=== PATIENT | female | born 1975 | race Caucasian/White ===

== ENCOUNTER 2020-08-26 16:58 | Emergency (ER) | payer MEDICAID ==
[~2020-08-26] VITALS: Ht 170.2 cm; Wt 117.3 kg
[2020-08-26 17:19] VITALS: BP 152/89
[2020-08-26] MEDS ORDERED: ketorolac tromethamine 15mg/ml inj. IM ONE (18:15)
[2020-08-26] MEDS ORDERED: IBUP-1984 PO (18:16)
== END 2020-08-26 18:45 | disposition home or self-care (01) ==
LOC: ER 17:00
DX: M54.5 Low back pain (principal); G89.29 Other chronic pain; F17.200 Nicotine dependence, unspecified, uncomplicated; Z72.89 Other problems related to lifestyle; Z88.5 Allergy status to narcotic agent; Z88.8 Allergy status to other drugs, medicaments and biological substances; Z79.899 Other long term (current) drug therapy
CPT/HCPCS: 96372; 99283; J1885

== ENCOUNTER 2020-10-15 12:30 | Emergency (ER) | payer MEDICAID ==
[2020-10-15 12:33] VITALS: BP 173/98
[2020-10-15] MEDS ORDERED: ACET-2119 PO (12:40)
[2020-10-15] MEDS ORDERED: CLIN300C54 PO (12:40)
== END 2020-10-15 12:48 | disposition home or self-care (01) ==
LOC: ER 12:30
DX: K04.7 Periapical abscess without sinus (principal); G89.29 Other chronic pain; Z86.19 Personal history of other infectious and parasitic diseases; Z72.89 Other problems related to lifestyle; Z88.6 Allergy status to analgesic agent; Z88.8 Allergy status to other drugs, medicaments and biological substances; Z79.899 Other long term (current) drug therapy
CPT/HCPCS: 99283

== ENCOUNTER 2021-02-12 09:44 | Emergency (ER) | payer MEDICAID ==
[~2021-02-12] VITALS: Ht 170.2 cm; Wt 123.0 kg
[2021-02-12 09:49] VITALS: BP 160/84
[2021-02-12] MEDS ORDERED: ketorolac trometh inj. 60 MG/2 ML VIAL IM ONE (10:45)
[2021-02-12] MEDS ORDERED: orphenadrine citrate 60mg/2ml inj. IM ONE (10:45)
== END 2021-02-12 11:59 | disposition home or self-care (01) ==
LOC: ER 09:44
DX: S39.012A Strain of muscle, fascia and tendon of lower back, initial encounter (principal); G89.29 Other chronic pain; Z72.89 Other problems related to lifestyle; Z88.0 Allergy status to penicillin; Z88.8 Allergy status to other drugs, medicaments and biological substances; Z88.5 Allergy status to narcotic agent; X58.XXXA Exposure to other specified factors, initial encounter; Y93.89 Activity, other specified; Y92.89 Other specified places as the place of occurrence of the external cause; Y99.8 Other external cause status
CPT/HCPCS: 96372; 99284; J1885; J2360

== ENCOUNTER 2021-06-07 13:31 | Emergency (ER) | payer MEDICAID ==
[~2021-06-07] VITALS: Ht 170.2 cm; Wt 116.8 kg
[2021-06-07 13:46] VITALS: BP 147/86
== END 2021-06-07 15:54 | disposition home or self-care (01) ==
LOC: ER 13:33
DX: M79.671 Pain in right foot (principal); G89.29 Other chronic pain; Z72.89 Other problems related to lifestyle; Z88.0 Allergy status to penicillin; Z88.8 Allergy status to other drugs, medicaments and biological substances
CPT/HCPCS: 73630; 99283

== ENCOUNTER 2021-11-08 10:12 | Emergency (ER) | payer MEDICAID ==
[~2021-11-08] VITALS: Ht 170.2 cm; Wt 106.8 kg
[2021-11-08 10:29] VITALS: BP 152/84
[2021-11-08] MEDS ORDERED: CYCL-1 PO (12:11)
[2021-11-08] MEDS ORDERED: METH4TAB81 PO (12:11)
== END 2021-11-08 13:02 | disposition home or self-care (01) ==
LOC: ER 10:12
DX: M54.50 Low back pain, unspecified (principal); G89.29 Other chronic pain; Z88.0 Allergy status to penicillin; Z88.5 Allergy status to narcotic agent; Z88.8 Allergy status to other drugs, medicaments and biological substances; W01.0XXA Fall on same level from slipping, tripping and stumbling without subsequent striking against object, initial encounter; Y93.89 Activity, other specified; Y92.89 Other specified places as the place of occurrence of the external cause; Y99.8 Other external cause status
CPT/HCPCS: 99283

== ENCOUNTER 2022-01-03 13:32 | Emergency (ER) | payer MEDICAID ==
[~2022-01-03] VITALS: Ht 170.2 cm; Wt 105.0 kg
[~2022-01-03 13:32] MED LIST: CYCL-1 PO; METH4TAB81 PO
[2022-01-03] MEDS ORDERED: HYDROcodone/acetaminophen 10/325mg tab PO ONE (14:30)
[2022-01-03] MEDS ORDERED: HYDR-3972 PO (14:35)
[2022-01-03 15:33] VITALS: BP 135/85
== END 2022-01-03 15:37 | disposition home or self-care (01) ==
LOC: ER 13:33
DX: M79.671 Pain in right foot (principal); G89.29 Other chronic pain; Z72.89 Other problems related to lifestyle; Z88.0 Allergy status to penicillin; Z88.5 Allergy status to narcotic agent; Z88.8 Allergy status to other drugs, medicaments and biological substances; Z79.899 Other long term (current) drug therapy
CPT/HCPCS: 73610; 73630; 99284

== ENCOUNTER 2022-03-03 06:58 | Emergency (ER) | payer MEDICAID ==
[~2022-03-03] VITALS: Ht 170.2 cm; Wt 101.8 kg
[2022-03-03 07:15] VITALS: BP 144/87
[2022-03-03] MEDS ORDERED: ipratropium/albuterol 3ml nebule NEB STA (09:39)
[2022-03-03] MEDS ORDERED: BENZ-38 PO (09:46)
[2022-03-03] MEDS ORDERED: PRED20TA PO (09:46)
[2022-03-03] MEDS ORDERED: ALBU8HFA PO (09:46)
== END 2022-03-03 10:25 | disposition home or self-care (01) ==
LOC: ER 06:59
DX: R05.3 Chronic cough (principal); E11.9 Type 2 diabetes mellitus without complications; G89.29 Other chronic pain; M54.9 Dorsalgia, unspecified; Z88.0 Allergy status to penicillin; Z88.8 Allergy status to other drugs, medicaments and biological substances; Z88.5 Allergy status to narcotic agent; Z79.899 Other long term (current) drug therapy
CPT/HCPCS: 71046; 94640; 94760; 99283

== ENCOUNTER 2022-04-08 21:59 | Emergency (ER) | payer MEDICAID ==
[~2022-04-08] VITALS: Ht 170.2 cm; Wt 98.6 kg
[2022-04-08 22:53] VITALS: BP 111/83
== END 2022-04-09 02:04 | disposition home or self-care (01) ==
LOC: ER 21:59
DX: M25.571 Pain in right ankle and joints of right foot (principal); M19.071 Primary osteoarthritis, right ankle and foot; G89.29 Other chronic pain; M54.50 Low back pain, unspecified; E11.9 Type 2 diabetes mellitus without complications; Z88.0 Allergy status to penicillin; Z88.5 Allergy status to narcotic agent; Z88.8 Allergy status to other drugs, medicaments and biological substances
CPT/HCPCS: 73610; 99283

== ENCOUNTER 2022-07-26 12:40 | Emergency (ER) | payer MEDICAID ==
[~2022-07-26] VITALS: Ht 170.2 cm; Wt 98.6 kg
[2022-07-26 13:07] VITALS: BP 111/77
[2022-07-26] MEDS ORDERED: ORPH100T2 PO (14:43)
== END 2022-07-26 15:01 | disposition home or self-care (01) ==
LOC: ER 12:40
DX: S39.012A Strain of muscle, fascia and tendon of lower back, initial encounter (principal); G89.29 Other chronic pain; M54.9 Dorsalgia, unspecified; E11.9 Type 2 diabetes mellitus without complications; Z88.0 Allergy status to penicillin; Z88.8 Allergy status to other drugs, medicaments and biological substances; Z79.899 Other long term (current) drug therapy; V87.7XXA Person injured in collision between other specified motor vehicles (traffic), initial encounter; Y93.89 Activity, other specified; Y92.89 Other specified places as the place of occurrence of the external cause; Y99.8 Other external cause status
CPT/HCPCS: 99283

== ENCOUNTER 2022-11-10 16:27 | Emergency (ER) | payer MEDICAID ==
[~2022-11-10] VITALS: Ht 170.2 cm; Wt 98.6 kg
[~2022-11-10 16:27] MED LIST changes: +ORPH100T2 PO
[2022-11-10 17:14] VITALS: BP 131/77
== END 2022-11-10 20:04 | disposition home or self-care (01) ==
LOC: ER 16:28
DX: S93.411A Sprain of calcaneofibular ligament of right ankle, initial encounter (principal); M25.571 Pain in right ankle and joints of right foot; E11.9 Type 2 diabetes mellitus without complications; G89.29 Other chronic pain; F17.200 Nicotine dependence, unspecified, uncomplicated; Z72.89 Other problems related to lifestyle; Z88.0 Allergy status to penicillin; Z88.8 Allergy status to other drugs, medicaments and biological substances; Z88.5 Allergy status to narcotic agent; Z79.899 Other long term (current) drug therapy
CPT/HCPCS: 29515; 73610; 99283; L1930

== ENCOUNTER 2022-11-29 17:34 | Emergency (ER) | payer MEDICAID ==
[~2022-11-29] VITALS: Ht 170.2 cm; Wt 98.6 kg
[2022-11-29 17:56] VITALS: BP 140/75
[2022-11-29] MEDS ORDERED: HYDROcodone/acetaminophen 5mg/325mg tablet PO ONE (19:20)
[2022-11-29] MEDS ORDERED: acetaminophen 325mg tablet PO ONE (20:00)
[2022-11-29] MEDS ORDERED: HYDR-3965 PO (20:20)
== END 2022-11-29 20:45 | disposition home or self-care (01) ==
LOC: ER 17:34
DX: M79.671 Pain in right foot (principal); M25.571 Pain in right ankle and joints of right foot; E11.9 Type 2 diabetes mellitus without complications; G89.29 Other chronic pain; M54.50 Low back pain, unspecified; Z88.0 Allergy status to penicillin; Z88.8 Allergy status to other drugs, medicaments and biological substances; Z88.5 Allergy status to narcotic agent
CPT/HCPCS: 73610; 73630; 99284; L4360

== ENCOUNTER 2023-02-27 07:55 | Emergency (ER) | payer MEDICAID ==
[~2023-02-27] VITALS: Ht 170.2 cm; Wt 96.0 kg
[~2023-02-27 07:55] MED LIST changes: -ORPH100T2 PO; +ORPH100T4 PO
[2023-02-27 07:57] VITALS: BP 157/90
[2023-02-27] MEDS ORDERED: CHLO473M2 PO (08:16)
[2023-02-27] MEDS ORDERED: METR-159 PO (08:16)
== END 2023-02-27 08:29 | disposition home or self-care (01) ==
LOC: ER 07:57
DX: K05.6 Periodontal disease, unspecified (principal); K05.10 Chronic gingivitis, plaque induced; I10 Essential (primary) hypertension; E11.9 Type 2 diabetes mellitus without complications; G89.29 Other chronic pain; F17.200 Nicotine dependence, unspecified, uncomplicated; Z72.89 Other problems related to lifestyle; Z88.0 Allergy status to penicillin; Z88.5 Allergy status to narcotic agent; Z88.8 Allergy status to other drugs, medicaments and biological substances; Z79.899 Other long term (current) drug therapy
CPT/HCPCS: 82948; 99284

== ENCOUNTER 2023-03-28 14:26 | Emergency (ER) | payer MEDICAID ==
[~2023-03-28] VITALS: Ht 170.2 cm; Wt 95.5 kg
[~2023-03-28 14:26] MED LIST changes: +CHLO473M2 PO; +METR-159 PO
[2023-03-28 14:29] VITALS: BP 149/102
[2023-03-28] MEDS ORDERED: gentamicin 0.1% topical ointment 15gm TP ONE (15:25)
[2023-03-28] MEDS ORDERED: sulfamethoxazole/trimethoprim DS (800/160mg) tablet PO ONE (15:25)
[2023-03-28] MEDS ORDERED: levoFLOXACIN 500mg tablet PO ONE (15:25)
[2023-03-28] MEDS ORDERED: SULF1TAB49 PO (15:38)
[2023-03-28] MEDS ORDERED: LEVO-65 PO (15:38)
== END 2023-03-28 15:55 | disposition home or self-care (01) ==
LOC: ER 14:26
DX: S91.109A Unspecified open wound of unspecified toe(s) without damage to nail, initial encounter (principal); E11.42 Type 2 diabetes mellitus with diabetic polyneuropathy; I10 Essential (primary) hypertension; G89.29 Other chronic pain; F17.200 Nicotine dependence, unspecified, uncomplicated; Z72.89 Other problems related to lifestyle; Z88.0 Allergy status to penicillin; Z88.5 Allergy status to narcotic agent; Z88.8 Allergy status to other drugs, medicaments and biological substances; Z79.899 Other long term (current) drug therapy; X58.XXXA Exposure to other specified factors, initial encounter; Y93.89 Activity, other specified; Y92.89 Other specified places as the place of occurrence of the external cause; Y99.8 Other external cause status
CPT/HCPCS: 99284

== ENCOUNTER 2023-04-06 23:14 | Emergency (ER) | payer MEDICAID ==
[~2023-04-06] VITALS: Ht 170.2 cm; Wt 94.0 kg
[~2023-04-06 23:14] MED LIST changes: -METR-159 PO
[2023-04-07 06:33] VITALS: BP 142/88
== END 2023-04-07 07:27 | disposition home or self-care (01) ==
LOC: ER 23:15
DX: E11.621 Type 2 diabetes mellitus with foot ulcer (principal); L97.529 Non-pressure chronic ulcer of other part of left foot with unspecified severity; I10 Essential (primary) hypertension; Z88.0 Allergy status to penicillin; Z88.5 Allergy status to narcotic agent; Z88.8 Allergy status to other drugs, medicaments and biological substances
CPT/HCPCS: 99281